=== PATIENT | female | born 2000 | race Two or more races ===

== ENCOUNTER 2021-12-14 16:58 | Outpatient (CLI) | payer MEDICAID ==
[2021-12-14 20:49] LABS: BASOPHILS % (AUTO) 0.3 %; EOSINOPHILS # (AUTO) 0.2 10^3/uL (0.0-0.7); EOSINOPHILS % (AUTO) 1.6 %; HCT - HEMATOCRIT 37.6 % (37.0-47.0); HGB - HEMOGLOBIN 11.5 g/dL (12.0-16.0); LYMPHOCYTES # (AUTO) 2.4 10^3/uL (1.5-3.5); LYMPHOCYTES % (AUTO) 25.8 %; MEAN CORPUSCULAR HEMOGLOBIN 24.7 pg (27.0-31.0); MEAN CORPUSCULAR HGB CONC 30.6 g/dL (32.0-36.0); MEAN CORPUSCULAR VOLUME 80.7 fL (81.0-99.0); MEAN PLATELET VOLUME 12.9 fL (7.9-10.8); MONOCYTES # (AUTO) 0.4 10^3/uL (0.0-1.0); MONOCYTES % (AUTO) 4.1 %; NEUTROPHILS # (AUTO) 6.3 10^3/uL (1.5-6.6); PLT - PLATELET COUNT 200 10^3/uL (130-450); RED BLOOD COUNT 4.66 10^6/uL (4.20-5.40); RED CELL DISTRIBUTION WIDTH 14.7 % (12.0-15.0); WHITE BLOOD COUNT 9.3 x10^3/uL (4.8-10.8)
[2021-12-14 21:08] LABS: ALBUMIN 4.4 g/dL (3.2-5.5); ALBUMIN/GLOBULIN RATIO 1.2 (1.0-2.2); ALKALINE PHOSPHATASE 46 IU/L (42-121); ALT ALANINE AMINOTRANSFERASE 12 IU/L (10-60); AST ASPARTATE AMINOTRANSFERASE 16 IU/L (10-42); BILIRUBIN,TOTAL 0.4 mg/dL (0.2-1.0); BUN - BLOOD UREA NITROGEN 25 mg/dL (6-20); CARBON DIOXIDE - CO2 25 mmol/L (21-32); CHLORIDE 101 mmol/L (101-111); CHOL/HDL RATIO 3.7 (<4.4); CHOLESTEROL 158 mg/dL; CREATININE 0.8 mg/dL (0.4-1.0); GFR - MDRD 91 (>89); GLUCOSE 112 mg/dL (70-100); HDL CHOLESTEROL 43 mg/dL; LDL CHOLESTEROL,CALCULATED 93 mg/dL; LDL/HDL RATIO 2.2 (<4.4); POTASSIUM 3.7 mmol/L (3.5-5.0); SODIUM 136 mmol/L (135-145); TRIGLYCERIDES 108 mg/dL; VLDL CHOLESTEROL 22 mg/dL
[2021-12-14 21:20] LABS: THYROID STIMULATING HORMONE 0.77 uIU/mL (0.34-5.60)
[2021-12-14 21:31] LABS: ESTIMATED AVERAGE GLUCOSE 111 mg/dL (70-100); HEMOGLOBIN A1c% 5.5 % (4.27-6.07)
[2021-12-15 00:05] LABS: CHLAMYDIA TRACHOMATIS DNA NEGATIVE (NEGATIVE); NEISSERIA GONORRHOEAE DNA NEGATIVE (NEGATIVE); TRICHOMONAS VAGINALIS DNA NEGATIVE (NEGATIVE)
[2021-12-16 15:11] LABS: HIV AG/AB 4TH GEN NON-REACTIVE (NON-REACTIVE)
== END 2021-12-14 16:59 | disposition home or self-care (01) ==
LOC: LAB.N 16:58
PROVIDERS: ATTEND Nurse Practitioner Family
DX: Z00.00 Encounter for general adult medical examination without abnormal findings (principal); E66.9 Obesity, unspecified; Z13.21 Encounter for screening for nutritional disorder; Z13.1 Encounter for screening for diabetes mellitus; Z13.220 Encounter for screening for lipoid disorders; Z72.51 High risk heterosexual behavior
CPT/HCPCS: 36415; 80050; 80061; 82306; 83036; 83721; 86592; 87389; 87491; 87591; 87661

== ENCOUNTER 2023-07-21 16:12 | Outpatient (CLI) | payer OTHER ==
[2023-07-21 17:00] LABS: THYROID STIMULATING HORMONE 1.35 uIU/mL (0.34-5.60)
[2023-07-21 20:26] LABS: ESTIMATED AVERAGE GLUCOSE 111 mg/dL (70-100); HEMOGLOBIN A1c% 5.5 % (4.27-6.07)
[2023-07-25 16:07] LABS: ANTINUCLEAR ANTIBODIES IFA Negative (.)
== END 2023-07-21 16:13 | disposition home or self-care (01) ==
LOC: LAB 16:12
PROVIDERS: ATTEND Nurse Practitioner
DX: L68.0 Hirsutism (principal)
CPT/HCPCS: 36415; 83036; 83498; 84439; 84443; 86038

== ENCOUNTER 2024-02-23 08:00 | Outpatient (CLI) | payer OTHER ==
[2024-02-23 23:16] LABS: CHLAMYDIA TRACHOMATIS DNA NEGATIVE (NEGATIVE); NEISSERIA GONORRHOEAE DNA NEGATIVE (NEGATIVE); TRICHOMONAS VAGINALIS DNA NEGATIVE (NEGATIVE)
== END 2024-02-23 23:59 | disposition home or self-care (01) ==
LOC: LAB.WC 08:00
PROVIDERS: ATTEND Obstetrics & Gynecology
DX: Z11.3 Encounter for screening for infections with a predominantly sexual mode of transmission (principal)
CPT/HCPCS: 87491; 87591; 87661

== ENCOUNTER 2024-02-23 11:23 | Emergency (ER) | payer OTHER ==
[2024-02-23 11:48] VITALS: O2SAT 100
[2024-02-23 12:15] LABS: BASOPHILS % (AUTO) 0.3 %; EOSINOPHILS # (AUTO) 0.1 10^3/uL (0.0-0.7); EOSINOPHILS % (AUTO) 0.9 %; HCT - HEMATOCRIT 35.1 % (37.0-47.0); HGB - HEMOGLOBIN 10.5 g/dL (12.0-16.0); LYMPHOCYTES # (AUTO) 1.9 10^3/uL (1.5-3.5); LYMPHOCYTES % (AUTO) 25.2 %; MEAN CORPUSCULAR HEMOGLOBIN 23.5 pg (27.0-31.0); MEAN CORPUSCULAR HGB CONC 29.9 g/dL (32.0-36.0); MEAN CORPUSCULAR VOLUME 78.7 fL (81.0-99.0); MEAN PLATELET VOLUME 11.2 fL (7.9-10.8); MONOCYTES # (AUTO) 0.3 10^3/uL (0.0-1.0); MONOCYTES % (AUTO) 3.9 %; NEUTROPHILS # (AUTO) 5.3 10^3/uL (1.5-6.6); NEUTROPHILS % (AUTO) 69.4 %; PLT - PLATELET COUNT 220 10^3/uL (130-450); RED BLOOD COUNT 4.46 10^6/uL (4.20-5.40); RED CELL DISTRIBUTION WIDTH 15.9 % (12.0-15.0); WHITE BLOOD COUNT 7.7 x10^3/uL (4.8-10.8)
[2024-02-23 12:33] LABS: ALBUMIN 4.3 g/dL (3.2-5.5); ALBUMIN/GLOBULIN RATIO 1.7 (1.0-2.2); ALKALINE PHOSPHATASE 50 IU/L (42-121); ALT ALANINE AMINOTRANSFERASE 9 IU/L (10-60); AST ASPARTATE AMINOTRANSFERASE 14 IU/L (10-42); BILIRUBIN,TOTAL 0.6 mg/dL (0.2-1.0); BUN - BLOOD UREA NITROGEN 20 mg/dL (6-20); CALCIUM 9.4 mg/dL (8.5-10.3); CARBON DIOXIDE - CO2 26 mmol/L (21-32); CHLORIDE 106 mmol/L (101-111); CREATININE 0.8 mg/dL (0.6-1.3); GFR - MDRD 88 (>89); GLUCOSE 104 mg/dL (74-104); POTASSIUM 3.5 mmol/L (3.5-4.5); SODIUM 139 mmol/L (135-145); TOTAL PROTEIN 6.8 g/dL (6.4-8.9)
--- NOTE | 2024-02-23 15:10 | ED Physician Documentation ---
PD HPI FEMALE - Stated complaint Stated Complaint: DIZZY, - Chief complaint Chief Complaint: Abd Pain - History obtained from History obtained from: Patient - Additional information Additional information: The patient comes to the emergency department chief complaint of a week of heavy vaginal bleeding. She has a history of menorrhagia and has a Mirena IUD in place for this. She states ever since this was placed in July, her bleeding has improved significantly until this month. She has been having a lot of lower abdominal cramps. She denies any passage of tissue. She is not known to be . The patient denies any fevers or chills. No nausea or vomiting. PD PAST MEDICAL HISTORY - Past Medical History Past Medical History: Yes Psych: ADD/ADHD - Past Surgical History Past Surgical History: No - Present Medications Home Medications: Ambulatory Orders Medication Instructions Recorded Confirmed Dextroamphetamine/Amphetamine 10 mg PO BID 02/23/24 02/23/24 [Adderall 10 mg Tablet] - Allergies Allergies/Adverse Reactions: Allergies Allergy/AdvReac Type Severity Reaction Status Date / Time Penicillins Allergy Unknown Unknown Verified 02/23/24 11:45 - Social History Does the pt smoke?: No Smoking Status: Never smoker Does the pt drink ETOH?: No Does the pt have substance abuse?: No - Immunizations Immunizations are current?: Yes - POLST Patient has POLST: No PD ED PE NORMAL - Vitals Vital signs reviewed: Yes - General General: Alert and oriented X 3, No acute distress, Well developed/nourished - HEENT HEENT: Atraumatic, EOMI, Moist mucous membranes - Neck Neck: Supple, no meningeal sign - Cardiac Cardiac: RRR, No murmur - Respiratory Respiratory: No respiratory distress, Clear bilaterally - Abdomen Abdomen: Soft, Non tender, Non distended - Derm Derm: Normal color, Warm and dry, No rash - Extremities Extremities: No deformity, No edema - Neuro Neuro: Other (Alert, grossly oriented) - Psych Psych: Normal mood, Normal affect Results - Vitals Vitals: Vital Signs - 24 hr 02/23/24 02/23/24 11:39 13:10 Temperature 36.5 C Heart Rate 89 78 Respiratory 15 15 Rate Blood Pressure 119/74 123/79 O2 Saturation 100 100 Oxygen O2 Source Room air - Labs Labs: Laboratory Tests 02/23/24 02/23/24 12:07 12:07 WBC 7.7 RBC 4.46 Hgb 10.5 L Hct 35.1 L MCV 78.7 L MCH 23.5 L MCHC 29.9 L RDW 15.9 H Plt Count 220 MPV 11.2 H Neut # (Auto) 5.3 Lymph # (Auto) 1.9 Trinity # (Auto) 0.3 Eos # (Auto) 0.1 Baso # (Auto) 0.0 Absolute Nucleated RBC 0.00 Nucleated RBC % 0.0 Sodium 139 Potassium 3.5 Chloride 106 Carbon Dioxide 26 Anion Gap 7.0 BUN 20 Creatinine 0.8 Estimated GFR (MDRD) 88 L Glucose 104 Calcium 9.4 Total Bilirubin 0.6 AST 14 ALT 9 L Alkaline Phosphatase 50 Total Protein 6.8 Albumin 4.3 Globulin 2.5 Albumin/Globulin Ratio 1.7 Beta HCG, Quant < 0.6 - Rads (name of study) Pelvic ultrasound Relevant Findings:: Final report received, See rad report (Migration of IUD to lower uterine segment. No other pathology noted.) PD Medical Decision Making - ED course Complexity details: reviewed results, re-evaluated patient, considered differential, d/w patient ED course: The patient's laboratory studies including CBC looked good. There is no evidence of a significant loss of blood. The patient's ultrasound showed abnormal placement of the IUD, most likely due to migration to the lower uterine segment. I did offer to take the IUD out here in the emergency department for the patient but she wanted to try to get the IUD replaced as soon as possible after removal. As such, I spoke with Amber Hernandez, the patient's gynecologic nurse practitioner and she stated that she could possibly see the patient In her clinic today. She stated the patient could come over to the clinic while her nurses attempt to get prior authorization for a visit today. I discussed this plan with the patient and she stated that is the way she would like to go. She declined any analgesia in the emergency department. We have discussed the usual indications for return. Departure - Departure Disposition: 01 Home, Self Care Clinical Impression: Pelvic pain in female Menorrhagia Qualifiers: Menorrhagia type: with regular cycle Qualified Code(s): N92.0 - Excessive and frequent menstruation with regular cycle IUD complication Qualifiers: Device complication type: mechanical Mechanical complication type: displacement Encounter type: initial encounter Qualified Code(s): T83.32XA - Displacement of intrauterine contraceptive device, initial encounter Condition: Stable Instructions: ED Bleeding Menstrual Heavy Comments: Your laboratory studies look very good here. There is no evidence that you have lost a dangerous amount of blood. Your ultrasound shows that your IUD has migrated into the lower part of your uterus. We have offered to remove this here, but since she would like to have it replaced potentially, your nurse practitioner Amber Ayala has offered to see you in the clinic to talk to about this and remove your IUD there. She would like you to go straight over to the clinic and they will let you know if they can see you today. This will depend whether your insurance company will authorize your visit to the clinic in a timely manner. Amber's nurses are working on this right now and if for what ever reason she cannot see you today, she will see you in the near future. They will let you know at the clinic. Amber will talk to you about options once your IUD has been removed. You may take ibuprofen for any cramps you are having. Please drink plenty of fluids to stay hydrated.
[2024-02-23 15:29] VITALS: BP 136/84
--- NOTE | 2024-02-23 17:57 | Ultrasound Report ---
PROCEDURE: Pelvic w/Transvag+Doppler Comp INDICATIONS: pelvic pain, worsening heavy bleeding TECHNIQUE: Real-time scanning was performed of the pelvic organs, with image documentation. Additional endovagi nal scanning was necessary due to incomplete visualization of the adnexal and endometrial structures by transabdominal scanning. Doppler interrogation was performed of the ovaries bilaterally. COMPARISON: None. FINDINGS: Uterus: Uterus is anteverted and normal in size at 7.6 x 3.6 x 3.4 cm. The myometrium is homogeneou s. The endometrium measures 3 mm in combined thickness. IUD within the mid to lower uterine segment . The endometrium contains heterogeneous, avascular material. Subserosal fibroid along the anterior, midline margin measuring 1 cm. Ovaries: The right ovary measures 3.4 x 2.3 x 1.4 cm, with a calculated ovarian volume of 5.8 cc. T he left ovary measures 2.9 x 1.3 x 1.3 cm, with a calculated ovarian volume of 2.4 cc. Appropriate b lood flow to the ovaries with Doppler interrogation. Less than 12 follicles can be seen in each ova ry. No adnexal masses are seen. No cystic lesions measuring greater than 3 cm. Other: No pathologic free abdominal or pelvic fluid. IMPRESSION: IUD within the mid to lower uterine segment. This should be advanced for proper placement. There is expansion of the endometrial cavity with avascular material, favoring hemorrhagic products. Reviewed by: Carrillo Bolivar MD on 02/23/2024 5:56 PM PDT Approved by: Carrillo Bolivar MD on 02/23/2024 5:56 PM PDT Station ID: [id number]
== END 2024-02-23 15:25 | disposition home or self-care (01) ==
LOC: ED 11:23
DX: T83.32XA Displacement of intrauterine contraceptive device, initial encounter (principal); N92.0 Excessive and frequent menstruation with regular cycle; R10.2 Pelvic and perineal pain; Z11.3 Encounter for screening for infections with a predominantly sexual mode of transmission; R10.9 Unspecified abdominal pain; N20.0 Calculus of kidney
CPT/HCPCS: 36415; 80053; 84702; 85025; 87491; 87591; 87661; 93975; 99283; 99284